=== PATIENT | male | born 1950 | race Caucasian/White ===

== ENCOUNTER 2016-06-17 14:04 | Emergency (ER) | payer MEDICARE, MEDICAID ==
[~2016-06-17] VITALS: Ht 193 cm; Wt 87.7 kg
[~2016-06-17 14:04] MED LIST: 00186-0372-20 IH; AMITRIPTYLINE H50 M1 PO; ASPIRIN 32325 MG/TAB PO; ASPIRIN E.C. 8181 MG PO; ATIVAN 0.50.5 MG/TAB; ATIVAN 1MG T1 MG/TAB PO; BACTRIM DS 8001 TAB PO; BUSPAR DIVIDOSE15 MG PO; COLACE 100100 MG/CAP PO; COMBIRESP IH; COMBIVENT INH14.7 GM IH; COREG12.5 MG PO; COZAAR 50MG50 MG/TAB PO; CRESTOR5 MG PO; CYMBALTA 30MG30 MG PO; DILAUDID 4MG TAB4 MG PO; FLEXERIL 1010 MG/TAB PO; FLONASEALLERGY NS; GAS-X80 MG PO; IMDUR 60MG60 MG/TAB PO; IPRATROPIUM BROM3 M1 IH; KLONOPIN 0.5MG0.5 MG PO; KLONOPIN 1MG1 MG PO; LASIX 20MG TABL20 MG PO; LIDODERM PATCH TP; LIPITOR 40MG TA40 MG PO; LIPITOR20 MG PO; MAXALT5 MG PO; METROGEL GEL45 GM TP; MOBIC 7.5MG7.5 MG PO; MOBIC15 MG PO; MUCINEX 60600 MG/TA1 PO; NEURONTIN100 MG/CAP PO; NEURONTIN300 MG/CAP PO; NITRO-DUR0.4 MG/PAT TD; NITROSTAT0.4 MG/TAB SL; NORCO 325 MG-101 TAB PO; NORCO 325 MG-51 TAB PO; NYSTATIN OR100 MU/ML PO; PERCOCET 325 MG1 TA2 PO; PLAVIX 75MG TAB75 MG PO; POTASSIUM IODID PO; PRILOSEC 20MG20 MG PO; PROSCAR 5MG5 MG PO; PULMICORT0.25 MG/2 IH; RT SPIRIVA18 MCG IH; SINGULAIR 110 MG/TAB PO; SYNTHROID 0.0.025 MG PO; THEO-24400 MG PO; THEO-DUR 2200 MG/TAB PO; VITAMIN D 50,1.25 MG PO; XOPENEX HF0.045 MG/A IH; XYAL5 MG PO; XYZAL5 MG PO; ZANTAC 150MG T150 MG PO; ZESTRIL 10MG10 MG PO; ZOSTRIX TP; [UNRECOGNIZED DRUG - OTHER] OU
[2016-06-17 14:46] LABS: BASO # 0.1 (0.0-0.2); BASO % 1.1 % (0.0-2.0); EOS # 0.4 (0.0-0.7); EOS % 4.1 % (0-4.0); GRAN # 4.5 (1.4-6.5); GRAN % 52.6 % (42.2-75.2); HEMATOCRIT 40.5 % (42.0-52.0); HEMOGLOBIN 13.3 g/dl (13.5-18.0); LYMPH # 2.9 (1.2-3.4); LYMPH % 34.3 % (20.0-51.0); MEAN CELL VOLUME 87 fl (80.0-100.0); MEAN CORPUSCULAR HEMOGLOBIN 29 pg (27.0-31.0); MEAN CORPUSCULAR HGB CONC 33 g/dl (33.0-37.0); MEAN PLATELET VOLUME 9.4 fl (7.4-10.4); MONO # 0.6 (0.1-0.6); MONO % 7.5 % (1.7-9.3); PLATELET COUNT 280 K/mm3 (130-400); RED BLOOD COUNT 4.65 M/mm3 (4.20-5.60); REDCELL DISTRIBUTION WIDTH-CV 15.1 % (11.5-14.5); WHITE BLOOD COUNT 8.5 K/mm3 (4.8-10.8)
[2016-06-17 14:51] LABS: ADJUSTED CALCIUM 9.8 mg/dL (8.4-10.2); ALANINE AMINOTRANSFERASE 22 U/L (21-72); ALBUMIN 3.9 gm/dL (3.5-5.0); ALKALINE PHOSPHATASE 90 U/L (50-136); ANION GAP 10 mmol/L (7-16); BILIRUBIN,TOTAL 0.5 mg/dL (0.0-1.0); BLOOD UREA NITROGEN 9 mg/dL (9-20); CALCIUM 9.7 mg/dL (8.4-10.2); CARBON DIOXIDE 21 mmol/L (22-30); CHLORIDE 105 mmol/L (98-107); GLUCOSE 98 mg/dL (74-106); POTASSIUM 4.4 mmol/L (3.4-5.0); SODIUM 136 mmol/L (137-145); TOTAL PROTEIN 6.8 gm/dL (6.4-8.2)
[2016-06-17 14:59] LABS: B-TYPE NATRIURETIC PEPTIDE 35 pg/mL (0-125)
[2016-06-17] MEDS ORDERED: PREDNISONE20 MG PO (15:02)
[2016-06-17 15:04] LABS: TROPONIN-I < 0.012 ng/mL (0.000-0.034)
[2016-06-17 15:52] VITALS: BP 123/87; PULSE 77
== END 2016-06-17 15:57 | disposition home or self-care (01) ==
LOC: COL.ER 14:04
PROVIDERS: Emergency Medicine
DX: R07.9 Chest pain, unspecified (principal); R06.00 Dyspnea, unspecified; J44.9 Chronic obstructive pulmonary disease, unspecified; R42 Dizziness and giddiness; J47.9 Bronchiectasis, uncomplicated; Z45.2 Encounter for adjustment and management of vascular access device
CPT/HCPCS: J7030; J7512

== ENCOUNTER 2016-06-24 10:31 | Outpatient (CLI) | payer MEDICARE, MEDICAID ==
[2016-06-24] VITALS (8 sets, daily range): BP systolic 118–135; BP diastolic 66–99; PULSE 72–85; TEMP 97.4–98.4
[~2016-06-24] VITALS: Ht 193 cm; Wt 87.0 kg
[~2016-06-24 10:31] MED LIST changes: +PREDNISONE20 MG PO
[2016-06-24 11:07] LABS: ADD PATHOLOGY DIFF REVIEW NO
[2016-06-24 11:12] LABS: HEMATOCRIT 38.3 % (42.0-52.0); HEMOGLOBIN 12.5 g/dl (13.5-18.0); MEAN CELL VOLUME 87 fl (80.0-100.0); MEAN CORPUSCULAR HEMOGLOBIN 29 pg (27.0-31.0); MEAN CORPUSCULAR HGB CONC 33 g/dl (33.0-37.0); MEAN PLATELET VOLUME 8.8 fl (7.4-10.4); PLATELET COUNT 301 K/mm3 (130-400); RED BLOOD COUNT 4.38 M/mm3 (4.20-5.60); REDCELL DISTRIBUTION WIDTH-CV 14.8 % (11.5-14.5); WHITE BLOOD COUNT 9.4 K/mm3 (4.8-10.8)
[2016-06-24 11:21] LABS: ADJUSTED CALCIUM 9.5 mg/dL (8.4-10.2); ALBUMIN 3.7 gm/dL (3.5-5.0); BILIRUBIN,TOTAL 0.3 mg/dL (0.0-1.0); CALCIUM 9.3 mg/dL (8.4-10.2); CREATININE, serum 1.07 mg/dL (0.66-1.25); POTASSIUM 4.7 mmol/L (3.4-5.0); TOTAL PROTEIN 6.3 gm/dL (6.4-8.2)
[2016-06-24 11:49] LABS: BAND 5 % (0-10); NEUTROPHILS 73 % (42.0-75.2); TOTAL CELLS COUNTED 100
== END 2016-06-24 15:34 | disposition home or self-care (01) ==
LOC: EUO 10:31
PROVIDERS: Internal Medicine
DX: D80.1 Nonfamilial hypogammaglobulinemia (principal); Z45.2 Encounter for adjustment and management of vascular access device
CPT/HCPCS: J1100; J1200; J1459; J1644

== ENCOUNTER 2016-07-21 09:12 | Emergency (ER) | payer MEDICARE, MEDICAID ==
[~2016-07-21] VITALS: Ht 193 cm; Wt 90.0 kg
[2016-07-21 09:17] VITALS: BP 131/101; PULSE 70; TEMP 97.6
[2016-07-22] MEDS ORDERED: TYLENOL W/COD1 UDTAB PO (11:41)
[2016-07-22] MEDS ORDERED: FLEXERIL 1010 MG/TAB PO (11:41)
== END 2016-07-21 10:40 | disposition home or self-care (01) ==
LOC: COL.ER 09:12
DX: S09.21XA Traumatic rupture of right ear drum, initial encounter (principal); W22.8XXA Striking against or struck by other objects, initial encounter; Y93.E8 Activity, other personal hygiene; I10 Essential (primary) hypertension; F17.210 Nicotine dependence, cigarettes, uncomplicated

== ENCOUNTER 2016-07-22 10:41 | Outpatient (CLI) | payer MEDICARE, MEDICAID ==
[~2016-07-22] VITALS: Ht 193 cm; Wt 90.0 kg
[2016-07-22] VITALS (9 sets, daily range): BP systolic 116–135; BP diastolic 60–83; PULSE 66–78; TEMP 97.4–98.5
[2016-07-22] MEDS ORDERED: FLEXERIL 1010 MG/TAB PO (11:41)
[2016-07-22] MEDS ORDERED: TYLENOL W/COD1 UDTAB PO (11:41)
== END 2016-07-22 14:35 | disposition home or self-care (01) ==
LOC: EUO 10:41
DX: D80.1 Nonfamilial hypogammaglobulinemia (principal); Z45.2 Encounter for adjustment and management of vascular access device
CPT/HCPCS: J1100; J1200; J1459; J1644

== ENCOUNTER 2016-08-19 09:31 | Outpatient (CLI) | payer MEDICARE, MEDICAID ==
[~2016-08-19] VITALS: Ht 193 cm; Wt 88.0 kg
[2016-08-19] VITALS (8 sets, daily range): BP systolic 99–120; BP diastolic 60–89; PULSE 68–89; TEMP 96–97.6
[~2016-08-19 09:31] MED LIST changes: +TYLENOL W/COD1 UDTAB PO
[2016-08-19 10:36] LABS: ADD PATHOLOGY DIFF REVIEW NO
[2016-08-19 10:46] LABS: HEMATOCRIT 39.9 % (42.0-52.0); HEMOGLOBIN 12.9 g/dl (13.5-18.0); MEAN CELL VOLUME 87 fl (80.0-100.0); MEAN CORPUSCULAR HEMOGLOBIN 28 pg (27.0-31.0); MEAN CORPUSCULAR HGB CONC 32 g/dl (33.0-37.0); MEAN PLATELET VOLUME 9.7 fl (7.4-10.4); PLATELET COUNT 273 K/mm3 (130-400); RED BLOOD COUNT 4.61 M/mm3 (4.20-5.60); REDCELL DISTRIBUTION WIDTH-CV 15.9 % (11.5-14.5); WHITE BLOOD COUNT 8.9 K/mm3 (4.8-10.8)
[2016-08-19 11:07] LABS: ADJUSTED CALCIUM 9.3 mg/dL (8.4-10.2); ALBUMIN 3.5 gm/dL (3.5-5.0); BILIRUBIN,TOTAL 0.7 mg/dL (0.0-1.0); CALCIUM 8.9 mg/dL (8.4-10.2); CREATININE, serum 1.04 mg/dL (0.66-1.25); POTASSIUM 4.4 mmol/L (3.4-5.0); TOTAL PROTEIN 6.1 gm/dL (6.4-8.2)
[2016-08-19 11:22] LABS: BAND 2 % (0-10); BASOPHIL 1 % (0-2); EOSINOPHIL 4 % (0-4); NEUTROPHILS 42 % (42.0-75.2); TOTAL CELLS COUNTED 100
== END 2016-08-19 16:51 | disposition home or self-care (01) ==
LOC: EUO 09:31
PROVIDERS: Internal Medicine
DX: D80.1 Nonfamilial hypogammaglobulinemia (principal); Z45.2 Encounter for adjustment and management of vascular access device
CPT/HCPCS: J1100; J1200; J1459; J1644

== ENCOUNTER 2016-09-16 11:07 | Outpatient (CLI) | payer MEDICARE, MEDICAID ==
[~2016-09-16] VITALS: Ht 193 cm; Wt 87.2 kg
[2016-09-16] VITALS (8 sets, daily range): BP systolic 122–148; BP diastolic 81–93; PULSE 71–84; TEMP 97.1
[2016-09-16 11:45] LABS: ADD PATHOLOGY DIFF REVIEW NO
[2016-09-16 11:52] LABS: HEMATOCRIT 37.9 % (42.0-52.0); HEMOGLOBIN 12.3 g/dl (13.5-18.0); MEAN CELL VOLUME 85 fl (80.0-100.0); MEAN CORPUSCULAR HEMOGLOBIN 28 pg (27.0-31.0); MEAN CORPUSCULAR HGB CONC 33 g/dl (33.0-37.0); MEAN PLATELET VOLUME 9.4 fl (7.4-10.4); PLATELET COUNT 317 K/mm3 (130-400); RED BLOOD COUNT 4.44 M/mm3 (4.20-5.60); REDCELL DISTRIBUTION WIDTH-CV 16.6 % (11.5-14.5); WHITE BLOOD COUNT 14.5 K/mm3 (4.8-10.8)
[2016-09-16 12:05] LABS: ADJUSTED CALCIUM 9.4 mg/dL (8.4-10.2); ALBUMIN 3.8 gm/dL (3.5-5.0); BILIRUBIN,TOTAL 0.5 mg/dL (0.0-1.0); CALCIUM 9.2 mg/dL (8.4-10.2); CREATININE, serum 1.01 mg/dL (0.66-1.25); POTASSIUM 4.6 mmol/L (3.4-5.0); TOTAL PROTEIN 6.2 gm/dL (6.4-8.2)
[2016-09-16 15:21] LABS: BAND 3 % (0-10); EOSINOPHIL 1 % (0-4); MYELOCYTE 1 % (0-0); NEUTROPHILS 68 % (42.0-75.2); TOTAL CELLS COUNTED 100
[2016-09-16 15:26] LABS: PLATELET ESTIMATE NORMAL (NORMAL)
[2016-09-16 15:40] LABS: ANISOCYTOSIS 1+
== END 2016-09-16 15:29 | disposition home or self-care (01) ==
LOC: EUO 11:07
PROVIDERS: Internal Medicine
DX: D80.1 Nonfamilial hypogammaglobulinemia (principal)
CPT/HCPCS: J1100; J1200; J1459

== ENCOUNTER 2016-10-21 11:55 | Outpatient (CLI) | payer MEDICARE, MEDICAID ==
[2016-10-21] VITALS (9 sets, daily range): BP systolic 95–122; BP diastolic 63–75; PULSE 72–87; TEMP 97.1–97.7
[~2016-10-21] VITALS: Ht 193 cm; Wt 87.2 kg
[2016-10-21 13:18] LABS: ADD PATHOLOGY DIFF REVIEW NO
[2016-10-21 13:21] LABS: HEMATOCRIT 39.6 % (42.0-52.0); HEMOGLOBIN 12.7 g/dl (13.5-18.0); MEAN CELL VOLUME 85 fl (80.0-100.0); MEAN CORPUSCULAR HEMOGLOBIN 27 pg (27.0-31.0); MEAN CORPUSCULAR HGB CONC 32 g/dl (33.0-37.0); MEAN PLATELET VOLUME 9.2 fl (7.4-10.4); PLATELET COUNT 250 K/mm3 (130-400); RED BLOOD COUNT 4.64 M/mm3 (4.20-5.60); REDCELL DISTRIBUTION WIDTH-CV 16.6 % (11.5-14.5); WHITE BLOOD COUNT 6.8 K/mm3 (4.8-10.8)
[2016-10-21 13:36] LABS: BAND 3 % (0-10); EOSINOPHIL 4 % (0-4); NEUTROPHILS 44 % (42.0-75.2); TOTAL CELLS COUNTED 100
[2016-10-21 13:38] LABS: PLATELET ESTIMATE NORMAL (NORMAL)
[2016-10-21 13:56] LABS: ADJUSTED CALCIUM 9.3 mg/dL (8.4-10.2); ALBUMIN 3.3 gm/dL (3.5-5.0); BILIRUBIN,TOTAL 0.7 mg/dL (0.0-1.0); CALCIUM 8.7 mg/dL (8.4-10.2); CREATININE, serum 1.14 mg/dL (0.66-1.25); POTASSIUM 4.4 mmol/L (3.4-5.0); TOTAL PROTEIN 5.7 gm/dL (6.4-8.2)
== END 2016-10-21 16:42 | disposition home or self-care (01) ==
LOC: EUO 11:55
PROVIDERS: Internal Medicine
DX: D80.1 Nonfamilial hypogammaglobulinemia (principal)
CPT/HCPCS: J1100; J1200; J1459

== ENCOUNTER 2016-11-18 10:40 | Outpatient (CLI) | payer MEDICARE, MEDICAID ==
[~2016-11-18] VITALS: Ht 193 cm; Wt 81.3 kg
[2016-11-18] VITALS (8 sets, daily range): BP systolic 118–145; BP diastolic 62–95; PULSE 53–84; TEMP 97.3–98
[2016-11-18 11:06] LABS: ADD PATHOLOGY DIFF REVIEW NO
[2016-11-18 11:11] LABS: HEMATOCRIT 39.8 % (42.0-52.0); HEMOGLOBIN 13.2 g/dl (13.5-18.0); MEAN CELL VOLUME 83 fl (80.0-100.0); MEAN CORPUSCULAR HEMOGLOBIN 28 pg (27.0-31.0); MEAN CORPUSCULAR HGB CONC 33 g/dl (33.0-37.0); MEAN PLATELET VOLUME 9.5 fl (7.4-10.4); PLATELET COUNT 269 K/mm3 (130-400); RED BLOOD COUNT 4.78 M/mm3 (4.20-5.60); REDCELL DISTRIBUTION WIDTH-CV 15.9 % (11.5-14.5); WHITE BLOOD COUNT 7.9 K/mm3 (4.8-10.8)
[2016-11-18 11:25] LABS: ADJUSTED CALCIUM 9.2 mg/dL (8.4-10.2); ALBUMIN 3.6 gm/dL (3.5-5.0); BILIRUBIN,TOTAL 0.6 mg/dL (0.0-1.0); CALCIUM 8.9 mg/dL (8.4-10.2); CREATININE, serum 0.85 mg/dL (0.66-1.25); POTASSIUM 4.3 mmol/L (3.4-5.0); TOTAL PROTEIN 6.1 gm/dL (6.4-8.2)
[2016-11-18 11:55] LABS: BAND 5 % (0-10); EOSINOPHIL 7 % (0-4); NEUTROPHILS 42 % (42.0-75.2); PLATELET ESTIMATE NORMAL (NORMAL); TOTAL CELLS COUNTED 100
== END 2016-11-18 15:55 | disposition home or self-care (01) ==
LOC: EUO 10:40
PROVIDERS: Internal Medicine
DX: D80.1 Nonfamilial hypogammaglobulinemia (principal)
CPT/HCPCS: J1100; J1459; J1644

== ENCOUNTER 2016-12-16 10:48 | Outpatient (CLI) | payer MEDICARE, MEDICAID ==
[~2016-12-16] VITALS: Ht 193 cm; Wt 74.5 kg
[2016-12-16] VITALS (8 sets, daily range): BP systolic 101–128; BP diastolic 46–80; PULSE 62–99; TEMP 97.1–97.7
[2016-12-16 12:43] LABS: ADD PATHOLOGY DIFF REVIEW NO
[2016-12-16 12:50] LABS: HEMATOCRIT 40.2 % (42.0-52.0); HEMOGLOBIN 13.8 g/dl (13.5-18.0); MEAN CELL VOLUME 83 fl (80.0-100.0); MEAN CORPUSCULAR HEMOGLOBIN 29 pg (27.0-31.0); MEAN CORPUSCULAR HGB CONC 34 g/dl (33.0-37.0); MEAN PLATELET VOLUME 9.8 fl (7.4-10.4); PLATELET COUNT 281 K/mm3 (130-400); RED BLOOD COUNT 4.82 M/mm3 (4.20-5.60); REDCELL DISTRIBUTION WIDTH-CV 17.5 % (11.5-14.5); WHITE BLOOD COUNT 8.5 K/mm3 (4.8-10.8)
[2016-12-16 12:59] LABS: ADJUSTED CALCIUM 9.5 mg/dL (8.4-10.2); ALBUMIN 3.4 gm/dL (3.5-5.0); BILIRUBIN,TOTAL 0.8 mg/dL (0.0-1.0); CREATININE, serum 0.93 mg/dL (0.66-1.25)
[2016-12-16 13:26] LABS: ANISOCYTOSIS 1+; BAND 13 % (0-10); BASOPHIL 1 % (0-2); EOSINOPHIL 6 % (0-4); METAMYELOCYTE 1 % (0-0); MYELOCYTE 1 % (0-0); NEUTROPHILS 38 % (42.0-75.2); PLATELET ESTIMATE INCREASED (NORMAL); TOTAL CELLS COUNTED 100
== END 2016-12-16 16:32 | disposition home or self-care (01) ==
LOC: EUO 10:48
PROVIDERS: Internal Medicine
DX: D80.1 Nonfamilial hypogammaglobulinemia (principal); T82.598A Other mechanical complication of other cardiac and vascular devices and implants, initial encounter; Z79.899 Other long term (current) drug therapy
CPT/HCPCS: J1100; J1200; J1459; J1644; J2997; Q9967

== ENCOUNTER 2017-01-13 06:56 | Outpatient (CLI) | payer MEDICARE, MEDICAID ==
[~2017-01-13] VITALS: Ht 193 cm; Wt 73.6 kg
[2017-01-13] VITALS (9 sets, daily range): BP systolic 94–141; BP diastolic 58–89; PULSE 51–60; TEMP 97.5–98.4
[2017-01-13 07:58] LABS: ADD PATHOLOGY DIFF REVIEW NO
[2017-01-13 08:05] LABS: HEMATOCRIT 38.9 % (42.0-52.0); MEAN CELL VOLUME 86 fl (80.0-100.0); MEAN CORPUSCULAR HEMOGLOBIN 29 pg (27.0-31.0); MEAN CORPUSCULAR HGB CONC 33 g/dl (33.0-37.0); MEAN PLATELET VOLUME 9.6 fl (7.4-10.4); PLATELET COUNT 260 K/mm3 (130-400); RED BLOOD COUNT 4.52 M/mm3 (4.20-5.60); WHITE BLOOD COUNT 6.7 K/mm3 (4.8-10.8)
[2017-01-13 08:15] LABS: ADJUSTED CALCIUM 9.2 mg/dL (8.4-10.2); BILIRUBIN,TOTAL 0.6 mg/dL (0.0-1.0); CALCIUM 8.4 mg/dL (8.4-10.2); CREATININE, serum 1.02 mg/dL (0.66-1.25); POTASSIUM 4.2 mmol/L (3.4-5.0); TOTAL PROTEIN 5.4 gm/dL (6.4-8.2)
[2017-01-13 08:38] LABS: ANISOCYTOSIS 2+; BAND 6 % (0-10); EOSINOPHIL 5 % (0-4); METAMYELOCYTE 2 % (0-0); MYELOCYTE 4 % (0-0); NEUTROPHILS 41 % (42.0-75.2); PLATELET ESTIMATE NORMAL (NORMAL); TOTAL CELLS COUNTED 100
== END 2017-01-13 11:26 | disposition home or self-care (01) ==
LOC: EUO 06:56
PROVIDERS: Internal Medicine
DX: D80.1 Nonfamilial hypogammaglobulinemia (principal)
CPT/HCPCS: J1100; J1200; J1459

== ENCOUNTER 2017-02-12 12:41 | Outpatient (CLI) | payer MEDICARE, MEDICAID ==
[~2017-02-12] VITALS: Ht 193 cm; Wt 71.4 kg
[2017-02-12] VITALS (9 sets, daily range): BP systolic 88–137; BP diastolic 57–87; PULSE 65–76; TEMP 98
[2017-02-12 14:53] LABS: ADD PATHOLOGY DIFF REVIEW NO
[2017-02-12 15:12] LABS: ADJUSTED CALCIUM 9.4 mg/dL (8.4-10.2); ALBUMIN 2.7 gm/dL (3.5-5.0); BILIRUBIN,TOTAL 0.3 mg/dL (0.0-1.0); CALCIUM 8.4 mg/dL (8.4-10.2); CREATININE, serum 0.95 mg/dL (0.66-1.25); POTASSIUM 3.7 mmol/L (3.4-5.0); TOTAL PROTEIN 5.1 gm/dL (6.4-8.2)
[2017-02-12 15:23] LABS: MEAN CELL VOLUME 88 fl (80.0-100.0); MEAN CORPUSCULAR HGB CONC 34 g/dl (33.0-37.0); MEAN PLATELET VOLUME 9.9 fl (7.4-10.4); PLATELET COUNT 207 K/mm3 (130-400); RED BLOOD COUNT 4.01 M/mm3 (4.20-5.60); REDCELL DISTRIBUTION WIDTH-CV 17.8 % (11.5-14.5); WHITE BLOOD COUNT 6.1 K/mm3 (4.8-10.8)
[2017-02-12 15:26] LABS: HEMATOCRIT 35.1 % (42.0-52.0); HEMOGLOBIN 11.8 g/dl (13.5-18.0); MEAN CORPUSCULAR HEMOGLOBIN 29 pg (27.0-31.0)
[2017-02-12 15:58] LABS: ANISOCYTOSIS 1+; EOSINOPHIL 4 % (0-4); NEUTROPHILS 54 % (42.0-75.2); PLATELET ESTIMATE NORMAL (NORMAL); TOTAL CELLS COUNTED 100
== END 2017-02-12 15:59 | disposition home or self-care (01) ==
LOC: EUO 12:41
PROVIDERS: Internal Medicine
DX: D80.1 Nonfamilial hypogammaglobulinemia (principal); Z79.899 Other long term (current) drug therapy
CPT/HCPCS: J1100; J1200; J1459

== ENCOUNTER 2017-03-10 12:17 | Outpatient (CLI) | payer MEDICARE ==
[2017-03-10] VITALS (8 sets, daily range): BP systolic 82–117; BP diastolic 46–73; PULSE 70–90; TEMP 97.5–97.9
[~2017-03-10] VITALS: Ht 193 cm; Wt 70.5 kg
[2017-03-10 12:38] LABS: ADD PATHOLOGY DIFF REVIEW NO
[2017-03-10 12:43] LABS: HEMATOCRIT 37.2 % (42.0-52.0); HEMOGLOBIN 12.6 g/dl (13.5-18.0); MEAN CELL VOLUME 90 fl (80.0-100.0); MEAN CORPUSCULAR HEMOGLOBIN 31 pg (27.0-31.0); MEAN CORPUSCULAR HGB CONC 34 g/dl (33.0-37.0); PLATELET COUNT 280 K/mm3 (130-400); RED BLOOD COUNT 4.12 M/mm3 (4.20-5.60); REDCELL DISTRIBUTION WIDTH-CV 15.4 % (11.5-14.5); WHITE BLOOD COUNT 7.2 K/mm3 (4.8-10.8)
[2017-03-10] MEDS ORDERED: LEXAPRO 10MG10 MG PO (12:44)
[2017-03-10] MEDS ORDERED: PLAVIX 75MG TAB75 MG PO (12:45)
[2017-03-10] MEDS ORDERED: FLOMAX 0.40.4 MG/CAP PO (12:48)
[2017-03-10 12:55] LABS: ADJUSTED CALCIUM 9.4 mg/dL (8.4-10.2); ALBUMIN 3.8 gm/dL (3.5-5.0); BILIRUBIN,TOTAL 0.3 mg/dL (0.0-1.0); CALCIUM 9.2 mg/dL (8.4-10.2); CREATININE, serum 0.98 mg/dL (0.66-1.25); TOTAL PROTEIN 6.5 gm/dL (6.4-8.2)
[2017-03-10 13:27] LABS: ANISOCYTOSIS 1+; BAND 3 % (0-10); BASOPHIL 1 % (0-2); EOSINOPHIL 6 % (0-4); METAMYELOCYTE 2 % (0-0); NEUTROPHILS 57 % (42.0-75.2); OVALOCYTES 1+; PLATELET ESTIMATE NORMAL (NORMAL)
[2017-03-10 13:29] LABS: MYELOCYTE 1 % (0-0); TOTAL CELLS COUNTED 100
== END 2017-03-10 16:32 | disposition home or self-care (01) ==
LOC: EUO 12:17
PROVIDERS: Internal Medicine
DX: D80.1 Nonfamilial hypogammaglobulinemia (principal); Z79.899 Other long term (current) drug therapy
CPT/HCPCS: J1100; J1200; J1459; J1644

== ENCOUNTER → 2017-04-28 | Outpatient (CLI) | payer MEDICARE, MEDICAID ==
[~2017-04-28] MED LIST changes: +FLOMAX 0.40.4 MG/CAP PO; +LEXAPRO 10MG10 MG PO
== END ==
LOC: COL.RAD 12:11
DX: R10.31 Right lower quadrant pain (principal)
CPT/HCPCS: J7050; Q9967

== ENCOUNTER → 2017-06-02 | Outpatient (CLI) | payer MEDICARE, MEDICAID ==
[~2017-06-02] VITALS: Ht 193 cm; Wt 84.0 kg
[2017-06-02] VITALS (8 sets, daily range): BP systolic 105–137; BP diastolic 54–74; PULSE 66–82; TEMP 97.7
[2017-06-02 12:34] LABS: HEMATOCRIT 38.6 % (42.0-52.0); HEMOGLOBIN 12.7 g/dl (13.5-18.0); MEAN CELL VOLUME 86 fl (80.0-100.0); MEAN CORPUSCULAR HEMOGLOBIN 28 pg (27.0-31.0); MEAN CORPUSCULAR HGB CONC 33 g/dl (33.0-37.0); MEAN PLATELET VOLUME 8.8 fl (7.4-10.4); PLATELET COUNT 286 K/mm3 (130-400); RED BLOOD COUNT 4.49 M/mm3 (4.20-5.60); REDCELL DISTRIBUTION WIDTH-CV 14.3 % (11.5-14.5)
[2017-06-02 12:36] LABS: ALBUMIN 4.4 gm/dL (3.5-5.0); BILIRUBIN,TOTAL 0.5 mg/dL (0.0-1.0); CALCIUM 9.8 mg/dL (8.4-10.2); CREATININE, serum 0.96 mg/dL (0.66-1.25); POTASSIUM 4.1 mmol/L (3.4-5.0); TOTAL PROTEIN 6.9 gm/dL (6.4-8.2)
[2017-06-02 12:45] LABS: BAND 3 % (0-10); EOSINOPHIL 2 % (0-4); LYMPHOCYTE 40 % (20.0-51.0); METAMYELOCYTE 2 % (0-0); NEUTROPHILS 51 % (42.0-75.2); PLATELET ESTIMATE NORMAL (NORMAL)
== END ==
LOC: EUO 11:51
PROVIDERS: Internal Medicine
DX: D80.1 Nonfamilial hypogammaglobulinemia (principal)
CPT/HCPCS: J1100; J1200; J1459; J1569

== ENCOUNTER 2017-07-29 10:58 | Outpatient (CLI) | payer MEDICARE, MEDICAID ==
[2017-07-29] VITALS (8 sets, daily range): BP systolic 110–131; BP diastolic 58–70; PULSE 67–80; TEMP 97.8–98.1
[~2017-07-29] VITALS: Ht 193 cm; Wt 87.3 kg
[2017-07-29 11:54] LABS: HEMATOCRIT 37.5 % (42.0-52.0); HEMOGLOBIN 12.5 g/dl (13.5-18.0); MEAN CELL VOLUME 86 fl (80.0-100.0); MEAN CORPUSCULAR HEMOGLOBIN 29 pg (27.0-31.0); MEAN CORPUSCULAR HGB CONC 33 g/dl (33.0-37.0); MEAN PLATELET VOLUME 8.8 fl (7.4-10.4); PLATELET COUNT 259 K/mm3 (130-400); RED BLOOD COUNT 4.38 M/mm3 (4.20-5.60); REDCELL DISTRIBUTION WIDTH-CV 15.8 % (11.5-14.5)
[2017-07-29 12:04] LABS: ALBUMIN 4.4 gm/dL (3.5-5.0); BILIRUBIN,TOTAL 0.4 mg/dL (0.0-1.0); CALCIUM 9.2 mg/dL (8.4-10.2); CREATININE, serum 1.12 mg/dL (0.66-1.25); POTASSIUM 4.1 mmol/L (3.4-5.0); TOTAL PROTEIN 6.9 gm/dL (6.4-8.2)
[2017-07-29 12:14] LABS: BAND 2 % (0-10); EOSINOPHIL 6 % (0-4); LYMPHOCYTE 19 % (20.0-51.0); METAMYELOCYTE 1 % (0-0); NEUTROPHILS 58 % (42.0-75.2); PLATELET ESTIMATE NORMAL (NORMAL)
== END 2017-07-29 16:00 | disposition home or self-care (01) ==
LOC: EUO 10:58
PROVIDERS: Internal Medicine
DX: D80.1 Nonfamilial hypogammaglobulinemia (principal); Z79.899 Other long term (current) drug therapy
CPT/HCPCS: J1100; J1200; J1569; J1644

== ENCOUNTER 2017-08-27 13:54 | Outpatient (CLI) | payer MEDICARE ==
[~2017-08-27] VITALS: Ht 193 cm; Wt 89.0 kg
[2017-08-27] VITALS (7 sets, daily range): BP systolic 111–119; BP diastolic 59–74; PULSE 67–77; TEMP 97.4–98.5
[2017-08-27 14:41] LABS: HEMATOCRIT 38.2 % (42.0-52.0); HEMOGLOBIN 12.7 g/dl (13.5-18.0); MEAN CELL VOLUME 84 fl (80.0-100.0); MEAN CORPUSCULAR HEMOGLOBIN 28 pg (27.0-31.0); MEAN CORPUSCULAR HGB CONC 33 g/dl (33.0-37.0); MEAN PLATELET VOLUME 8.3 fl (7.4-10.4); PLATELET COUNT 303 K/mm3 (130-400); RED BLOOD COUNT 4.53 M/mm3 (4.20-5.60); REDCELL DISTRIBUTION WIDTH-CV 15.5 % (11.5-14.5)
[2017-08-27 14:56] LABS: ANISOCYTOSIS 1+; EOSINOPHIL 11 % (0-4); LYMPHOCYTE 27 % (20.0-51.0); NEUTROPHILS 51 % (42.0-75.2); PLATELET ESTIMATE NORMAL (NORMAL)
[2017-08-27 15:19] LABS: ALBUMIN 3.9 gm/dL (3.5-5.0); BILIRUBIN,TOTAL 0.2 mg/dL (0.0-1.0); CREATININE, serum 1.19 mg/dL (0.66-1.25); POTASSIUM 4.1 mmol/L (3.4-5.0); TOTAL PROTEIN 6.8 gm/dL (6.4-8.2)
== END 2017-08-27 18:03 | disposition home or self-care (01) ==
LOC: EUO 13:54
PROVIDERS: Internal Medicine
DX: D80.1 Nonfamilial hypogammaglobulinemia (principal)
CPT/HCPCS: J1100; J1200; J1569; J1644

== ENCOUNTER 2017-09-20 09:40 | Inpatient (IN) | payer MEDICARE, MEDICAID ==
[2017-09-28 08:58] VITALS: BP 123/72; PULSE 66; TEMP 97.5
[2017-09-28] MEDS ORDERED: ASPIRIN 81M81 MG/TA2 PO (09:22)
[2017-09-28] MEDS ORDERED: ALBUTEROL0.83 MG/ML IH (09:22)
[2017-09-28] MEDS ORDERED: WELLBUTRIN SR150 M1 PO (09:22)
[2017-09-28] MEDS ORDERED: QUESTRAN4 GM/9 GM PO (09:23)
[2017-09-28] MEDS ORDERED: RESTASIS 60VL OP (09:24)
[2017-09-28] MEDS ORDERED: BENTYL 10MG10 MG/CAP PO (09:24)
[2017-09-28] MEDS ORDERED: MUCINEX1200 MG PO (09:25)
[2017-09-28] MEDS ORDERED: MILK OF MA400 MG/52 PO (09:25)
[2017-09-28] MEDS ORDERED: NITRO-DUR0.4 MG/PAT TD (09:26)
[2017-09-28] MEDS ORDERED: PROTONIX20 MG PO (09:27)
[2017-09-28] MEDS ORDERED: POTASSIUM IODID PO (09:27)
[2017-09-28] MEDS ORDERED: VENTOLIN0.09 MG IH (09:28)
[2017-09-28] MEDS ORDERED: SPIRIVA RE2.5 MCG/Ac IH (09:28)
[2017-09-28] MEDS ORDERED: FLORAJEN BIFIDO1 CAP PO (09:28)
[2017-09-28 09:29] LABS: BASO % 0.2 % (0.0-2.0); EOS # 0.3 (0.0-0.7); EOS % 2.6 % (0-4.0); GRAN # 7.2 (1.4-6.5); GRAN % 58.6 % (42.2-75.2); HEMATOCRIT 40.1 % (42.0-52.0); HEMOGLOBIN 13.2 g/dl (13.5-18.0); LYMPH # 3.8 (1.2-3.4); LYMPH % 30.4 % (20.0-51.0); MEAN CELL VOLUME 84 fl (80.0-100.0); MEAN CORPUSCULAR HEMOGLOBIN 28 pg (27.0-31.0); MEAN CORPUSCULAR HGB CONC 33 g/dl (33.0-37.0); MONO # 0.9 (0.1-0.6); MONO % 7.5 % (1.7-9.3); PLATELET COUNT 345 K/mm3 (130-400); RED BLOOD COUNT 4.75 M/mm3 (4.20-5.60); REDCELL DISTRIBUTION WIDTH-CV 15.5 % (11.5-14.5)
[2017-09-28] MEDS ORDERED: BENEFIBER PO (09:29)
[2017-09-28] MEDS ORDERED: COUMADIN 5MG5 MG/TAB PO (09:32)
[2017-09-28 09:35] LABS: INR 3.4 (0.8-3.0); PROTHROMBIN TIME 40.8 SECONDS (9.7-12.8)
[2017-09-28 09:39] LABS: ALBUMIN 3.9 gm/dL (3.5-5.0); BILIRUBIN,TOTAL 0.2 mg/dL (0.0-1.0); CALCIUM 9.2 mg/dL (8.4-10.2); CREATININE, serum 0.98 mg/dL (0.66-1.25); MAGNESIUM 2.2 mg/dL (1.6-2.3); POTASSIUM 3.5 mmol/L (3.4-5.0); TOTAL PROTEIN 7.3 gm/dL (6.4-8.2)
[2017-09-28 12:16] VITALS: BP 138/86; PULSE 61; TEMP 97.5
[2017-09-28 16:51] VITALS: BP 148/71; PULSE 64; TEMP 97.8
[2017-09-28 20:01] VITALS: BP 118/70; PULSE 62; TEMP 98.6
[2017-09-28 23:31] VITALS: BP 129/75; PULSE 62; TEMP 98.5
[2017-09-29 04:10] VITALS: BP 102/53; PULSE 59; TEMP 97.7
[2017-09-29 06:55] LABS: BASO # 0.1 (0.0-0.2); BASO % 0.7 % (0.0-2.0); EOS # 0.4 (0.0-0.7); EOS % 4.5 % (0-4.0); GRAN # 4.6 (1.4-6.5); GRAN % 48.2 % (42.2-75.2); HEMATOCRIT 40.6 % (42.0-52.0); HEMOGLOBIN 13.3 g/dl (13.5-18.0); LYMPH # 3.5 (1.2-3.4); LYMPH % 36.9 % (20.0-51.0); MEAN CELL VOLUME 85 fl (80.0-100.0); MEAN CORPUSCULAR HEMOGLOBIN 28 pg (27.0-31.0); MEAN CORPUSCULAR HGB CONC 33 g/dl (33.0-37.0); MEAN PLATELET VOLUME 8.7 fl (7.4-10.4); MONO # 0.8 (0.1-0.6); MONO % 8.5 % (1.7-9.3); PLATELET COUNT 327 K/mm3 (130-400); RED BLOOD COUNT 4.77 M/mm3 (4.20-5.60); REDCELL DISTRIBUTION WIDTH-CV 15.5 % (11.5-14.5)
[2017-09-29 07:12] LABS: CALCIUM 8.9 mg/dL (8.4-10.2); CREATININE, serum 1.03 mg/dL (0.66-1.25); POTASSIUM 4.3 mmol/L (3.4-5.0)
[2017-09-29 07:15] LABS: INR 3.4 (0.8-3.0); PROTHROMBIN TIME 40.6 SECONDS (9.7-12.8)
[2017-09-29 08:25] VITALS: BP 111/75; PULSE 62; TEMP 97.5
[2017-09-29 12:40] VITALS: BP 112/68; PULSE 62; TEMP 98.2
[2017-09-29 16:19] VITALS: BP 117/68; PULSE 67; TEMP 98.4
[2017-09-29 20:17] VITALS: BP 109/59; PULSE 72; TEMP 97.8
[2017-09-30 00:22] VITALS: BP 83/57; PULSE 60; TEMP 97.9
[2017-09-30 03:50] VITALS: BP 104/70; PULSE 67; TEMP 97.3
[2017-09-30 06:43] LABS: HEMATOCRIT 40.2 % (42.0-52.0); MEAN CELL VOLUME 86 fl (80.0-100.0); MEAN CORPUSCULAR HEMOGLOBIN 28 pg (27.0-31.0); MEAN CORPUSCULAR HGB CONC 32 g/dl (33.0-37.0); MEAN PLATELET VOLUME 8.8 fl (7.4-10.4); PLATELET COUNT 317 K/mm3 (130-400); REDCELL DISTRIBUTION WIDTH-CV 15.4 % (11.5-14.5)
[2017-09-30 06:50] LABS: PROTHROMBIN TIME 36.1 SECONDS (9.7-12.8)
[2017-09-30 06:56] LABS: CALCIUM 8.8 mg/dL (8.4-10.2); CREATININE, serum 0.99 mg/dL (0.66-1.25); POTASSIUM 4.3 mmol/L (3.4-5.0)
[2017-09-30 08:11] VITALS: BP 123/75; PULSE 60; TEMP 98
[2017-09-30 08:29] LABS: EOSINOPHIL 2 % (0-4); LYMPHOCYTE 24 % (20.0-51.0); NEUTROPHILS 65 % (42.0-75.2); PLATELET ESTIMATE NORMAL (NORMAL)
[2017-09-30 08:30] LABS: ANISOCYTOSIS 1+; POLYCHROMASIA 1+
[2017-09-30] MEDS ORDERED: BETAPACE 80MG80 MG PO (10:52)
== END 2017-09-30 13:03 | disposition home or self-care (01) | DRG 309 ==
LOC: INPTSU 09-28 07:46 → MEDICAL 09-28 07:46
PROVIDERS: Internal Medicine Cardiovascular Disease
DX: I48.0 Paroxysmal atrial fibrillation (principal); D84.9 Immunodeficiency, unspecified; I42.0 Dilated cardiomyopathy; I25.10 Atherosclerotic heart disease of native coronary artery without angina pectoris; I10 Essential (primary) hypertension; J44.9 Chronic obstructive pulmonary disease, unspecified; Z87.891 Personal history of nicotine dependence; Z79.01 Long term (current) use of anticoagulants; I35.1 Nonrheumatic aortic (valve) insufficiency

== ENCOUNTER 2017-09-22 13:03 | Outpatient (CLI) | payer MEDICARE ==
[~2017-09-22] VITALS: Ht 193 cm; Wt 93.6 kg
[2017-09-22 13:36] LABS: HEMOGLOBIN 12.7 g/dl (13.5-18.0); MEAN CELL VOLUME 85 fl (80.0-100.0); MEAN CORPUSCULAR HEMOGLOBIN 28 pg (27.0-31.0); MEAN CORPUSCULAR HGB CONC 33 g/dl (33.0-37.0); MEAN PLATELET VOLUME 8.4 fl (7.4-10.4); PLATELET COUNT 270 K/mm3 (130-400); RED BLOOD COUNT 4.58 M/mm3 (4.20-5.60); REDCELL DISTRIBUTION WIDTH-CV 15.7 % (11.5-14.5)
[2017-09-22 13:48] LABS: ALBUMIN 3.6 gm/dL (3.5-5.0); BAND 3 % (0-10); BILIRUBIN,TOTAL 0.2 mg/dL (0.0-1.0); CALCIUM 8.9 mg/dL (8.4-10.2); CREATININE, serum 1.07 mg/dL (0.66-1.25); EOSINOPHIL 3 % (0-4); LYMPHOCYTE 30 % (20.0-51.0); NEUTROPHILS 58 % (42.0-75.2); POTASSIUM 4.6 mmol/L (3.4-5.0); TOTAL PROTEIN 6.7 gm/dL (6.4-8.2)
[2017-09-22 13:49] LABS: PLATELET ESTIMATE NORMAL (NORMAL); POLYCHROMASIA 1+
[2017-09-22 13:57] VITALS: BP 120/82; PULSE 62; TEMP 97.4
[2017-09-22 14:15] VITALS: BP 133/75; PULSE 71
[2017-09-22 14:45] VITALS: BP 113/64; PULSE 70; TEMP 97.6
[2017-09-22 15:19] VITALS: BP 105/63; PULSE 68; TEMP 97.8
== END 2017-09-22 16:49 | disposition home or self-care (01) ==
LOC: EUO 13:03
PROVIDERS: Internal Medicine
DX: D80.1 Nonfamilial hypogammaglobulinemia (principal); Z79.899 Other long term (current) drug therapy
CPT/HCPCS: J1100; J1200; J1459; J1569

== ENCOUNTER 2017-10-20 07:51 | Outpatient (CLI) | payer MEDICARE, MEDICAID ==
[2017-10-20] VITALS (8 sets, daily range): BP systolic 121–133; BP diastolic 73–110; PULSE 60–67; TEMP 96.9–97.8
[~2017-10-20] VITALS: Ht 190.5 cm; Wt 92.0 kg
[~2017-10-20 07:51] MED LIST changes: +ALBUTEROL0.83 MG/ML IH; +ASPIRIN 81M81 MG/TA2 PO; +BENEFIBER PO; +BENTYL 10MG10 MG/CAP PO; +BETAPACE 80MG80 MG PO; +COUMADIN 5MG5 MG/TAB PO; +FLORAJEN BIFIDO1 CAP PO; +MILK OF MA400 MG/52 PO; +MUCINEX1200 MG PO; +PROTONIX20 MG PO; +QUESTRAN4 GM/9 GM PO; +RESTASIS 60VL OP; +SPIRIVA RE2.5 MCG/Ac IH; +VENTOLIN0.09 MG IH; +WELLBUTRIN SR150 M1 PO
[2017-10-20 08:34] LABS: HEMATOCRIT 41.2 % (42.0-52.0); HEMOGLOBIN 13.5 g/dl (13.5-18.0); MEAN CELL VOLUME 86 fl (80.0-100.0); MEAN CORPUSCULAR HEMOGLOBIN 28 pg (27.0-31.0); MEAN CORPUSCULAR HGB CONC 33 g/dl (33.0-37.0); MEAN PLATELET VOLUME 8.9 fl (7.4-10.4); PLATELET COUNT 310 K/mm3 (130-400); REDCELL DISTRIBUTION WIDTH-CV 15.9 % (11.5-14.5)
[2017-10-20 08:39] LABS: ALBUMIN 3.8 gm/dL (3.5-5.0); BILIRUBIN,TOTAL 0.6 mg/dL (0.0-1.0); CALCIUM 9.2 mg/dL (8.4-10.2); CREATININE, serum 0.96 mg/dL (0.66-1.25); POTASSIUM 3.9 mmol/L (3.4-5.0); TOTAL PROTEIN 6.8 gm/dL (6.4-8.2)
[2017-10-20 09:21] LABS: BAND 3 % (0-10); EOSINOPHIL 4 % (0-4); LYMPHOCYTE 39 % (20.0-51.0); NEUTROPHILS 45 % (42.0-75.2); PLATELET ESTIMATE NORMAL (NORMAL)
[2017-10-20] MEDS ORDERED: BETAPACE AF80 MG/TA1 PO (11:27)
== END 2017-10-20 12:04 | disposition home or self-care (01) ==
LOC: EUO 07:51
PROVIDERS: Internal Medicine
DX: D80.1 Nonfamilial hypogammaglobulinemia (principal)
CPT/HCPCS: J1100; J1200; J1459; J1569; J1644

== ENCOUNTER 2017-11-19 11:07 | Outpatient (CLI) | payer MEDICARE, MEDICAID ==
[2017-11-19] VITALS (8 sets, daily range): BP systolic 115–144; BP diastolic 76–87; PULSE 56–70; TEMP 97.8
[~2017-11-19] VITALS: Ht 190.5 cm; Wt 90.7 kg
[~2017-11-19 11:07] MED LIST changes: +BETAPACE AF80 MG/TA1 PO
[2017-11-19 11:52] LABS: HEMATOCRIT 40.9 % (42.0-52.0); HEMOGLOBIN 13.5 g/dl (13.5-18.0); MEAN CELL VOLUME 85 fl (80.0-100.0); MEAN CORPUSCULAR HEMOGLOBIN 28 pg (27.0-31.0); MEAN CORPUSCULAR HGB CONC 33 g/dl (33.0-37.0); MEAN PLATELET VOLUME 8.9 fl (7.4-10.4); PLATELET COUNT 301 K/mm3 (130-400); RED BLOOD COUNT 4.82 M/mm3 (4.20-5.60); REDCELL DISTRIBUTION WIDTH-CV 15.6 % (11.5-14.5)
[2017-11-19 12:02] LABS: ALBUMIN 3.9 gm/dL (3.5-5.0); BILIRUBIN,TOTAL 0.4 mg/dL (0.0-1.0); CALCIUM 9.4 mg/dL (8.4-10.2); CREATININE, serum 1.02 mg/dL (0.66-1.25); POTASSIUM 4.3 mmol/L (3.4-5.0)
[2017-11-19 12:42] LABS: BAND 2 % (0-10); EOSINOPHIL 7 % (0-4); HYPOCHROMIA 1+; LYMPHOCYTE 38 % (20.0-51.0); NEUTROPHILS 51 % (42.0-75.2); PLATELET ESTIMATE NORMAL (NORMAL)
[2017-11-22 08:07] LABS: PATHOLOGY DIFF REVIEW OK
== END 2017-11-19 13:50 | disposition home or self-care (01) ==
LOC: EUO 11:07
PROVIDERS: Internal Medicine
DX: D80.1 Nonfamilial hypogammaglobulinemia (principal)
CPT/HCPCS: J1100; J1200; J1459; J1569; J1644

== ENCOUNTER 2018-02-14 10:49 | Outpatient (CLI) | payer MEDICARE, MEDICAID ==
[~2018-02-14] VITALS: Ht 190.5 cm; Wt 91.3 kg
[2018-02-14] VITALS (9 sets, daily range): BP systolic 101–144; BP diastolic 68–87; PULSE 54–92; TEMP 98
[2018-02-14 11:25] LABS: HEMATOCRIT 40.9 % (42.0-52.0); HEMOGLOBIN 13.2 g/dl (13.5-18.0); MEAN CELL VOLUME 83 fl (80.0-100.0); MEAN CORPUSCULAR HEMOGLOBIN 27 pg (27.0-31.0); MEAN CORPUSCULAR HGB CONC 32 g/dl (33.0-37.0); MEAN PLATELET VOLUME 9.1 fl (7.4-10.4); PLATELET COUNT 278 K/mm3 (130-400); RED BLOOD COUNT 4.95 M/mm3 (4.20-5.60); REDCELL DISTRIBUTION WIDTH-CV 16.8 % (11.5-14.5)
[2018-02-14 11:31] LABS: INR 1.8 (0.8-3.0); PROTHROMBIN TIME 20.8 SECONDS (9.7-12.8)
[2018-02-14 11:40] LABS: ALBUMIN 4.1 gm/dL (3.5-5.0); BILIRUBIN,TOTAL 0.2 mg/dL (0.0-1.0); CALCIUM 9.5 mg/dL (8.4-10.2); CREATININE, serum 1.2 mg/dL (0.66-1.25); POTASSIUM 5.3 mmol/L (3.4-5.0); TOTAL PROTEIN 6.8 gm/dL (6.4-8.2)
[2018-02-14 12:10] LABS: THYROID STIMULATING HORMONE 1.84 uIU/mL (0.465-4.680)
[2018-02-14 12:58] LABS: BAND 3 % (0-10); EOSINOPHIL 3 % (0-4); LYMPHOCYTE 34 % (20.0-51.0); NEUTROPHILS 52 % (42.0-75.2); PLATELET ESTIMATE NORMAL (NORMAL)
== END 2018-02-14 14:00 | disposition home or self-care (01) ==
LOC: EUO 10:49
PROVIDERS: Internal Medicine
DX: D80.1 Nonfamilial hypogammaglobulinemia (principal); I48.0 Paroxysmal atrial fibrillation; Z79.01 Long term (current) use of anticoagulants; Z45.2 Encounter for adjustment and management of vascular access device; Z95.828 Presence of other vascular implants and grafts
CPT/HCPCS: J1100; J1200; J1459; J1569; J1644

== ENCOUNTER 2018-03-16 11:00 | Outpatient (CLI) | payer MEDICARE, MEDICAID ==
[2018-03-16] VITALS (7 sets, daily range): BP systolic 119–130; BP diastolic 68–93; PULSE 54–65; TEMP 97.4–97.9
[~2018-03-16] VITALS: Ht 190.5 cm; Wt 90.2 kg
[2018-03-16 11:53] LABS: HEMATOCRIT 40.6 % (42.0-52.0); HEMOGLOBIN 13.1 g/dl (13.5-18.0); MEAN CELL VOLUME 83 fl (80.0-100.0); MEAN CORPUSCULAR HEMOGLOBIN 27 pg (27.0-31.0); MEAN CORPUSCULAR HGB CONC 32 g/dl (33.0-37.0); MEAN PLATELET VOLUME 9.1 fl (7.4-10.4); PLATELET COUNT 278 K/mm3 (130-400); RED BLOOD COUNT 4.87 M/mm3 (4.20-5.60); REDCELL DISTRIBUTION WIDTH-CV 18.1 % (11.5-14.5)
[2018-03-16 11:59] LABS: BILIRUBIN,TOTAL 0.5 mg/dL (0.0-1.0); CALCIUM 9.1 mg/dL (8.4-10.2); CREATININE, serum 0.99 mg/dL (0.66-1.25); POTASSIUM 4.4 mmol/L (3.4-5.0); TOTAL PROTEIN 6.7 gm/dL (6.4-8.2)
[2018-03-16 12:00] LABS: PROTHROMBIN TIME 22.2 SECONDS (9.7-12.8)
[2018-03-16 13:10] LABS: BAND 1 % (0-10); BASOPHIL 1 % (0-2); EOSINOPHIL 2 % (0-4); LYMPHOCYTE 34 % (20.0-51.0); NEUTROPHILS 55 % (42.0-75.2)
[2018-03-16 13:11] LABS: PLATELET ESTIMATE NORMAL (NORMAL)
== END 2018-03-16 14:02 | disposition home or self-care (01) ==
LOC: EUO 11:00
PROVIDERS: Internal Medicine
DX: D80.1 Nonfamilial hypogammaglobulinemia (principal); I48.0 Paroxysmal atrial fibrillation; Z79.899 Other long term (current) drug therapy; Z79.01 Long term (current) use of anticoagulants
CPT/HCPCS: J1100; J1200; J1569; J1644

== ENCOUNTER 2018-04-20 12:50 | Outpatient (CLI) | payer MEDICARE, MEDICAID ==
[2018-04-20] VITALS (7 sets, daily range): BP systolic 103–136; BP diastolic 61–86; PULSE 62–71; TEMP 97–98.2
[~2018-04-20] VITALS: Ht 190.5 cm; Wt 90.6 kg
[2018-04-20 13:48] LABS: HEMATOCRIT 40.3 % (42.0-52.0); HEMOGLOBIN 12.9 g/dl (13.5-18.0); MEAN CELL VOLUME 84 fl (80.0-100.0); MEAN CORPUSCULAR HEMOGLOBIN 27 pg (27.0-31.0); MEAN CORPUSCULAR HGB CONC 32 g/dl (33.0-37.0); MEAN PLATELET VOLUME 9.2 fl (7.4-10.4); PLATELET COUNT 268 K/mm3 (130-400); RED BLOOD COUNT 4.82 M/mm3 (4.20-5.60); REDCELL DISTRIBUTION WIDTH-CV 17.1 % (11.5-14.5)
[2018-04-20 13:58] LABS: ALBUMIN 3.9 gm/dL (3.5-5.0); BILIRUBIN,TOTAL 0.5 mg/dL (0.0-1.0); CALCIUM 9.2 mg/dL (8.4-10.2); POTASSIUM 4.1 mmol/L (3.4-5.0); TOTAL PROTEIN 6.5 gm/dL (6.4-8.2)
[2018-04-20 14:05] LABS: ANISOCYTOSIS 1+; BAND 1 % (0-10); EOSINOPHIL 10 % (0-4); LYMPHOCYTE 34 % (20.0-51.0); NEUTROPHILS 48 % (42.0-75.2); PLATELET ESTIMATE NORMAL (NORMAL)
[2018-04-20 14:25] LABS: INR 2.7 (0.8-3.0); PROTHROMBIN TIME 30.4 SECONDS (9.7-12.8)
== END 2018-04-20 16:18 | disposition home or self-care (01) ==
LOC: EUO 12:50
PROVIDERS: Family Medicine; Internal Medicine
DX: D80.1 Nonfamilial hypogammaglobulinemia (principal); I48.0 Paroxysmal atrial fibrillation; Z79.01 Long term (current) use of anticoagulants; Z45.2 Encounter for adjustment and management of vascular access device; Z95.828 Presence of other vascular implants and grafts; Z48.00 Encounter for change or removal of nonsurgical wound dressing
CPT/HCPCS: J1100; J1200; J1459; J1569; J1644

== ENCOUNTER 2018-05-17 09:49 | Day surgery (SDC) | payer MEDICARE, MEDICAID ==
[~2018-05-17] VITALS: Ht 190.5 cm; Wt 90.2 kg
[2018-05-17] MEDS ORDERED: ANORO IH (10:21)
[2018-05-17] MEDS ORDERED: BACTRIM DS 8001 TAB PO (10:21)
[2018-05-17] MEDS ORDERED: CUVITRU IV (10:34)
[2018-05-17 10:39] VITALS: BP 111/75; PULSE 61; TEMP 97.6
[2018-05-17 12:35] VITALS: BP 120/85; PULSE 60
[2018-05-17 12:50] VITALS: BP 125/80; PULSE 75
[2018-05-17 13:05] VITALS: BP 116/87; PULSE 74
== END 2018-05-17 13:15 | disposition home or self-care (01) ==
LOC: SDCO 09:49
DX: K57.30 Diverticulosis of large intestine without perforation or abscess without bleeding (principal); K64.8 Other hemorrhoids; K21.9 Gastro-esophageal reflux disease without esophagitis; M19.90 Unspecified osteoarthritis, unspecified site; J44.9 Chronic obstructive pulmonary disease, unspecified; E78.00 Pure hypercholesterolemia, unspecified; I10 Essential (primary) hypertension; K58.9 Irritable bowel syndrome, unspecified; I48.91 Unspecified atrial fibrillation; I25.10 Atherosclerotic heart disease of native coronary artery without angina pectoris; I42.9 Cardiomyopathy, unspecified; Z79.82 Long term (current) use of aspirin; Z79.51 Long term (current) use of inhaled steroids; Z86.010 Personal history of colon polyps
CPT/HCPCS: J2704; J7030

== ENCOUNTER 2018-05-27 11:10 | Outpatient (CLI) | payer MEDICARE, MEDICAID ==
[2018-05-27] VITALS (7 sets, daily range): BP systolic 125–147; BP diastolic 70–99; PULSE 54–67; TEMP 96.8–98.1
[~2018-05-27] VITALS: Ht 190.5 cm; Wt 89.0 kg
[~2018-05-27 11:10] MED LIST changes: +ANORO IH; +CUVITRU IV
[2018-05-27 11:39] LABS: HEMATOCRIT 40.9 % (42.0-52.0); HEMOGLOBIN 13.3 g/dl (13.5-18.0); MEAN CELL VOLUME 83 fl (80.0-100.0); MEAN CORPUSCULAR HEMOGLOBIN 27 pg (27.0-31.0); MEAN CORPUSCULAR HGB CONC 33 g/dl (33.0-37.0); MEAN PLATELET VOLUME 9.3 fl (7.4-10.4); PLATELET COUNT 274 K/mm3 (130-400); RED BLOOD COUNT 4.96 M/mm3 (4.20-5.60); REDCELL DISTRIBUTION WIDTH-CV 16.5 % (11.5-14.5)
[2018-05-27 11:49] LABS: BILIRUBIN,TOTAL 0.1 mg/dL (0.0-1.0); CALCIUM 9.2 mg/dL (8.4-10.2); CREATININE, serum 1.05 mg/dL (0.66-1.25); POTASSIUM 4.6 mmol/L (3.4-5.0); TOTAL PROTEIN 6.6 gm/dL (6.4-8.2)
[2018-05-27 11:59] LABS: INR 2.5 (0.8-3.0); PROTHROMBIN TIME 28.9 SECONDS (9.7-12.8)
[2018-05-27 12:17] LABS: BAND 3 % (0-10); EOSINOPHIL 3 % (0-4); NEUTROPHILS 56 % (42.0-75.2); PLATELET ESTIMATE NORMAL (NORMAL)
[2018-05-27 12:18] LABS: ANISOCYTOSIS 1+; LYMPHOCYTE 32 % (20.0-51.0)
[2018-05-27] MEDS ORDERED: CLARITIN 1010 MG/TAB PO (13:38)
== END 2018-05-27 14:30 | disposition home or self-care (01) ==
LOC: EUO 11:10
PROVIDERS: Internal Medicine
DX: D80.1 Nonfamilial hypogammaglobulinemia (principal); I48.0 Paroxysmal atrial fibrillation; Z79.01 Long term (current) use of anticoagulants; Z45.2 Encounter for adjustment and management of vascular access device; Z95.828 Presence of other vascular implants and grafts
CPT/HCPCS: J1100; J1200; J1459; J1569; J1644

== ENCOUNTER 2018-07-13 11:23 | Outpatient (CLI) | payer MEDICARE, MEDICAID ==
[~2018-07-13] VITALS: Ht 190.5 cm; Wt 87.9 kg
[~2018-07-13 11:23] MED LIST changes: +CLARITIN 1010 MG/TAB PO
[2018-07-13 11:50] VITALS: BP 123/86; PULSE 68; TEMP 98.4
[2018-07-13 11:52] LABS: HEMATOCRIT 43.7 % (42.0-52.0); HEMOGLOBIN 14.3 g/dl (13.5-18.0); MEAN CELL VOLUME 81 fl (80.0-100.0); MEAN CORPUSCULAR HEMOGLOBIN 27 pg (27.0-31.0); MEAN CORPUSCULAR HGB CONC 33 g/dl (33.0-37.0); PLATELET COUNT 296 K/mm3 (130-400); RED BLOOD COUNT 5.38 M/mm3 (4.20-5.60); REDCELL DISTRIBUTION WIDTH-CV 16.8 % (11.5-14.5)
[2018-07-13 12:05] VITALS: BP 101/64; PULSE 76; TEMP 98.4
[2018-07-13 12:06] LABS: ALBUMIN 4.3 gm/dL (3.5-5.0); BILIRUBIN,TOTAL 0.4 mg/dL (0.0-1.0); CALCIUM 9.6 mg/dL (8.4-10.2); CREATININE, serum 1.19 mg/dL (0.66-1.25); TOTAL PROTEIN 7.1 gm/dL (6.4-8.2)
[2018-07-13 12:15] LABS: INR 5.7 (0.8-3.0); PROTHROMBIN TIME 64.7 SECONDS (9.7-12.8)
[2018-07-13 12:20] VITALS: BP 100/64; PULSE 79; TEMP 98.4
[2018-07-13 12:31] LABS: EOSINOPHIL 1 % (0-4); LYMPHOCYTE 23 % (20.0-51.0); METAMYELOCYTE 1 % (0-0); NEUTROPHILS 70 % (42.0-75.2); PLATELET ESTIMATE NORMAL (NORMAL)
[2018-07-13 12:32] LABS: ANISOCYTOSIS 1+
[2018-07-13] MEDS ORDERED: BACTRIM DS 8001 TAB PO (12:49)
[2018-07-13 12:50] VITALS: BP 122/84; PULSE 66; TEMP 98.4
[2018-07-13 13:20] VITALS: BP 116/80; PULSE 84; TEMP 98.4
[2018-07-13 13:51] VITALS: BP 108/76; PULSE 82; TEMP 98.4
== END 2018-07-13 13:52 | disposition home or self-care (01) ==
LOC: EUO 11:23
PROVIDERS: Internal Medicine
DX: D80.1 Nonfamilial hypogammaglobulinemia (principal); I48.0 Paroxysmal atrial fibrillation; Z79.899 Other long term (current) drug therapy
CPT/HCPCS: J1100; J1200; J1569; J1644

== ENCOUNTER 2018-08-22 10:18 | Outpatient (CLI) | payer MEDICARE, MEDICAID ==
[~2018-08-22] VITALS: Ht 190.5 cm; Wt 87.3 kg
[2018-08-22] VITALS (7 sets, daily range): BP systolic 102–117; BP diastolic 66–85; PULSE 56–59; TEMP 97.6
[2018-08-22 10:49] LABS: HEMATOCRIT 40.4 % (42.0-52.0); HEMOGLOBIN 13.2 g/dl (13.5-18.0); MEAN CELL VOLUME 82 fl (80.0-100.0); MEAN CORPUSCULAR HEMOGLOBIN 27 pg (27.0-31.0); MEAN CORPUSCULAR HGB CONC 33 g/dl (33.0-37.0); MEAN PLATELET VOLUME 8.4 fl (7.4-10.4); PLATELET COUNT 387 K/mm3 (130-400); REDCELL DISTRIBUTION WIDTH-CV 17.1 % (11.5-14.5)
[2018-08-22 10:58] LABS: ALBUMIN 3.8 gm/dL (3.5-5.0); BILIRUBIN,TOTAL 0.3 mg/dL (0.0-1.0); CALCIUM 9.5 mg/dL (8.4-10.2); POTASSIUM 4.4 mmol/L (3.4-5.0); TOTAL PROTEIN 6.7 gm/dL (6.4-8.2)
[2018-08-22 11:00] LABS: INR 6.7 (0.8-3.0)
[2018-08-22 11:33] LABS: EOSINOPHIL 6 % (0-4); LYMPHOCYTE 29 % (20.0-51.0); NEUTROPHILS 57 % (42.0-75.2)
[2018-08-22 11:34] LABS: PLATELET ESTIMATE NORMAL (NORMAL)
--- NOTE | 2018-08-22 12:00 | NUR ---
PT NOTIFIED REGARDING DISCUSSION WITH . PT AWARE TO HOLD COUMADIN AND GO TO OFFICE TO HAVE INR RECHECKED ON . OFFICE WILL CALL AFTER RESULTS ARE IN TO GUIDE PT REGARDING HIS DOSAGE. PT VERBALIZED UNDERSTANDING.
[2018-08-22] MEDS ORDERED: COLCRYS0.6 MG PO (13:02)
== END 2018-08-22 13:10 | disposition home or self-care (01) ==
LOC: EUO 10:18
PROVIDERS: Internal Medicine
DX: D80.1 Nonfamilial hypogammaglobulinemia (principal); I48.0 Paroxysmal atrial fibrillation; Z79.01 Long term (current) use of anticoagulants
CPT/HCPCS: J1100; J1200; J1569; J1644

== ENCOUNTER 2018-10-07 13:08 | Outpatient (CLI) | payer MEDICARE, MEDICAID ==
--- NOTE | 2018-10-04 09:43 | NUR ---
Patient has cancelled infusions each month when scheduled.Kia Holt at office notified of cancelations and dates rescheduled.Will continue to attempt to do infusions monthly as ordered with patient's compliance.Patient has agreed to come after multiple attempts of this staff to reschedule.
[2018-10-07] VITALS (8 sets, daily range): BP systolic 121–134; BP diastolic 64–80; PULSE 58–82; TEMP 97.3–97.6
[~2018-10-07] VITALS: Ht 190.5 cm; Wt 85.0 kg
[~2018-10-07 13:08] MED LIST changes: +COLCRYS0.6 MG PO
[2018-10-07 14:00] LABS: HEMATOCRIT 38.7 % (42.0-52.0); HEMOGLOBIN 12.5 g/dl (13.5-18.0); MEAN CELL VOLUME 84 fl (80.0-100.0); MEAN CORPUSCULAR HEMOGLOBIN 27 pg (27.0-31.0); MEAN CORPUSCULAR HGB CONC 32 g/dl (33.0-37.0); MEAN PLATELET VOLUME 8.7 fl (7.4-10.4); PLATELET COUNT 327 K/mm3 (130-400); RED BLOOD COUNT 4.61 M/mm3 (4.20-5.60); REDCELL DISTRIBUTION WIDTH-CV 17.2 % (11.5-14.5)
[2018-10-07 14:02] LABS: INR 3.4 (0.8-3.0); PROTHROMBIN TIME 38.9 SECONDS (9.7-12.8)
[2018-10-07 14:07] LABS: ALBUMIN 3.8 gm/dL (3.5-5.0); BILIRUBIN,TOTAL 0.3 mg/dL (0.0-1.0); CALCIUM 9.2 mg/dL (8.4-10.2); CREATININE, serum 1.02 (0.66-1.25); TOTAL PROTEIN 6.6 gm/dL (6.4-8.2)
[2018-10-07 14:29] LABS: EOSINOPHIL 5 % (0-4); LYMPHOCYTE 39 % (20.0-51.0); METAMYELOCYTE 2 % (0-0); MYELOCYTE 1 % (0-0); NEUTROPHILS 46 % (42.0-75.2); NUCLEATED RED BLOOD CELL 1 (0-6); PLATELET ESTIMATE NORMAL (NORMAL)
== END 2018-10-07 17:17 | disposition home or self-care (01) ==
LOC: EUO 13:08
PROVIDERS: Internal Medicine
DX: Z51.81 Encounter for therapeutic drug level monitoring (principal); I48.0 Paroxysmal atrial fibrillation; Z79.01 Long term (current) use of anticoagulants; D80.1 Nonfamilial hypogammaglobulinemia
CPT/HCPCS: J1100; J1200; J1459; J1569; J1644

== ENCOUNTER 2018-11-18 11:15 | Outpatient (CLI) | payer MEDICARE, MEDICAID ==
[~2018-11-18] VITALS: Ht 190.5 cm; Wt 79.3 kg
[2018-11-18 12:42] LABS: HEMATOCRIT 39.3 % (42.0-52.0); HEMOGLOBIN 12.8 g/dl (13.5-18.0); MEAN CELL VOLUME 83 fl (80.0-100.0); MEAN CORPUSCULAR HEMOGLOBIN 27 pg (27.0-31.0); MEAN CORPUSCULAR HGB CONC 33 g/dl (33.0-37.0); PLATELET COUNT 299 K/mm3 (130-400); RED BLOOD COUNT 4.72 M/mm3 (4.20-5.60); REDCELL DISTRIBUTION WIDTH-CV 17.5 % (11.5-14.5)
[2018-11-18 12:49] LABS: INR 1.8 (0.8-3.0); PROTHROMBIN TIME 20.9 SECONDS (9.7-12.8)
[2018-11-18 12:52] LABS: ALBUMIN 4.3 gm/dL (3.5-5.0); BILIRUBIN,TOTAL 0.5 mg/dL (0.0-1.0); CALCIUM 9.7 mg/dL (8.4-10.2); CREATININE, serum 1.04 (0.66-1.25); POTASSIUM 4.3 mmol/L (3.4-5.0); TOTAL PROTEIN 7.1 gm/dL (6.4-8.2)
[2018-11-18 12:53] VITALS: BP 108/66; PULSE 67; TEMP 98.3
[2018-11-18 13:20] VITALS: BP 105/75; PULSE 66
[2018-11-18 13:50] VITALS: BP 106/51; PULSE 70
[2018-11-18 14:01] LABS: HYPOCHROMIA 1+; LYMPHOCYTE 16 % (20.0-51.0); NEUTROPHILS 81 % (42.0-75.2); PLATELET ESTIMATE NORMAL (NORMAL)
[2018-11-18 14:20] VITALS: BP 101/44; PULSE 71; TEMP 97.6
[2018-11-18 14:50] VITALS: BP 110/68; PULSE 60; TEMP 97.6
--- NOTE | 2018-11-18 15:31 | NUR ---
PORT A CATH ACCESSED BY SELENA GALAN PRIOR TO INUSION.FLUSHES EASILY,NO BLOOD RETURN.PT STATES "IT DOSE THIS ONE IN A WHILE." PT REQUESTS INT TO BE PLACED.PT PORT FLUSHED AND DEACCESSED PER PT REQUEST TO "SEE HOW TI WORKS NEXT TIME."
== END 2018-11-18 15:39 | disposition home or self-care (01) ==
LOC: EUO 11:15
PROVIDERS: Family Medicine; Internal Medicine
DX: I48.0 Paroxysmal atrial fibrillation (principal); D80.1 Nonfamilial hypogammaglobulinemia; Z79.01 Long term (current) use of anticoagulants
CPT/HCPCS: J1100; J1200; J1569; J1644

== ENCOUNTER 2018-12-16 10:50 | Outpatient (CLI) | payer MEDICARE, MEDICAID ==
[~2018-12-16] VITALS: Ht 190.5 cm; Wt 78.7 kg
[2018-12-16 11:20] LABS: HEMATOCRIT 38.8 % (42.0-52.0); HEMOGLOBIN 12.6 g/dl (13.5-18.0); MEAN CELL VOLUME 83 fl (80.0-100.0); MEAN CORPUSCULAR HEMOGLOBIN 27 pg (27.0-31.0); MEAN CORPUSCULAR HGB CONC 33 g/dl (33.0-37.0); MEAN PLATELET VOLUME 8.6 fl (7.4-10.4); PLATELET COUNT 353 K/mm3 (130-400); RED BLOOD COUNT 4.69 M/mm3 (4.20-5.60); REDCELL DISTRIBUTION WIDTH-CV 18.2 % (11.5-14.5)
[2018-12-16 11:26] LABS: INR 3.2 (0.8-3.0); PROTHROMBIN TIME 39.2 SECONDS (9.7-12.8)
[2018-12-16 11:36] LABS: BAND 3 % (0-10); LYMPHOCYTE 16 % (20.0-51.0); NEUTROPHILS 79 % (42.0-75.2); PLATELET ESTIMATE NORMAL (NORMAL)
[2018-12-16 11:37] LABS: ALBUMIN 3.9 gm/dL (3.5-5.0); BILIRUBIN,TOTAL 0.1 mg/dL (0.0-1.0); CALCIUM 9.3 mg/dL (8.4-10.2); CREATININE, serum 1.07 (0.66-1.25); POTASSIUM 4.7 mmol/L (3.4-5.0); TOTAL PROTEIN 6.5 gm/dL (6.4-8.2)
[2018-12-16 11:50] VITALS: BP 97/59; PULSE 79; TEMP 97.8
[2018-12-16 12:03] VITALS: BP 120/70; PULSE 78; TEMP 97.5
[2018-12-16 12:05] VITALS: BP 94/57; PULSE 77; TEMP 97.8
[2018-12-16 12:34] VITALS: BP 90/53; PULSE 77; TEMP 97.8
[2018-12-16 13:03] VITALS: BP 98/58; PULSE 74; TEMP 97.8
[2018-12-16 13:40] VITALS: BP 98/57; PULSE 73; TEMP 97.6
== END 2018-12-16 13:50 | disposition home or self-care (01) ==
LOC: EUO 10:50
PROVIDERS: Family Medicine; Internal Medicine
DX: I48.0 Paroxysmal atrial fibrillation (principal); Z79.01 Long term (current) use of anticoagulants
CPT/HCPCS: J1100; J1200; J1459; J1569; J1644

== ENCOUNTER 2019-02-08 10:55 | Outpatient (CLI) | payer MEDICARE, MEDICAID ==
[2019-02-08] VITALS (7 sets, daily range): BP systolic 102–118; BP diastolic 56–80; PULSE 49–64; TEMP 96.7–98
[~2019-02-08] VITALS: Ht 190.5 cm; Wt 79.4 kg
[2019-02-08 11:36] LABS: HEMATOCRIT 37.6 % (42.0-52.0); HEMOGLOBIN 12.4 g/dl (13.5-18.0); MEAN CELL VOLUME 84 fl (80.0-100.0); MEAN CORPUSCULAR HEMOGLOBIN 28 pg (27.0-31.0); MEAN CORPUSCULAR HGB CONC 33 g/dl (33.0-37.0); MEAN PLATELET VOLUME 8.6 fl (7.4-10.4); PLATELET COUNT 273 K/mm3 (130-400); RED BLOOD COUNT 4.48 M/mm3 (4.20-5.60); REDCELL DISTRIBUTION WIDTH-CV 16.8 % (11.5-14.5)
[2019-02-08 11:41] LABS: INR 1.1 (0.8-3.0); PROTHROMBIN TIME 12.3 SECONDS (9.7-12.8)
[2019-02-08] MEDS ORDERED: ELIQUIS 5MG PO (11:44)
[2019-02-08 11:45] LABS: BILIRUBIN,TOTAL 0.4 mg/dL (0.0-1.0); CALCIUM 9.2 mg/dL (8.4-10.2); CREATININE, serum 0.91 (0.66-1.25); POTASSIUM 4.8 mmol/L (3.4-5.0); TOTAL PROTEIN 6.5 gm/dL (6.4-8.2)
[2019-02-08 11:53] LABS: ANISOCYTOSIS 1+; BASOPHIL 1 % (0-2); EOSINOPHIL 4 % (0-4); LYMPHOCYTE 42 % (20.0-51.0); NEUTROPHILS 41 % (42.0-75.2); PLATELET ESTIMATE NORMAL (NORMAL)
== END 2019-02-08 15:00 | disposition home or self-care (01) ==
LOC: EUO 10:55
PROVIDERS: Family Medicine; Internal Medicine
DX: I48.0 Paroxysmal atrial fibrillation (principal); D80.1 Nonfamilial hypogammaglobulinemia; Z79.01 Long term (current) use of anticoagulants
CPT/HCPCS: J1100; J1200; J1569; J1644

== ENCOUNTER 2019-03-08 13:33 | Outpatient (CLI) | payer MEDICARE, MEDICAID ==
[~2019-03-08] VITALS: Ht 190.5 cm; Wt 79.3 kg
[~2019-03-08 13:33] MED LIST changes: +ELIQUIS 5MG PO
[2019-03-08 13:50] VITALS: BP 121/62; PULSE 62; TEMP 97.2
[2019-03-08 14:20] LABS: HEMATOCRIT 39.4 % (42.0-52.0); MEAN CELL VOLUME 85 fl (80.0-100.0); MEAN CORPUSCULAR HEMOGLOBIN 28 pg (27.0-31.0); MEAN CORPUSCULAR HGB CONC 33 g/dl (33.0-37.0); MEAN PLATELET VOLUME 8.4 fl (7.4-10.4); PLATELET COUNT 281 K/mm3 (130-400); RED BLOOD COUNT 4.63 M/mm3 (4.20-5.60); REDCELL DISTRIBUTION WIDTH-CV 16.6 % (11.5-14.5)
[2019-03-08 14:25] VITALS: BP 112/68; PULSE 62; TEMP 97.6
[2019-03-08 14:25] LABS: INR 1.1 (0.8-3.0); PROTHROMBIN TIME 12.9 SECONDS (9.7-12.8)
[2019-03-08 14:35] LABS: BILIRUBIN,TOTAL 0.4 mg/dL (0.0-1.0); CALCIUM 9.2 mg/dL (8.4-10.2); CREATININE, serum 1.01 (0.66-1.25); POTASSIUM 4.2 mmol/L (3.4-5.0); TOTAL PROTEIN 6.5 gm/dL (6.4-8.2)
[2019-03-08 14:40] VITALS: BP 106/65; PULSE 60; TEMP 97.8
[2019-03-08 14:52] LABS: BAND 2 % (0-10); EOSINOPHIL 4 % (0-4); LYMPHOCYTE 41 % (20.0-51.0); NEUTROPHILS 48 % (42.0-75.2)
[2019-03-08 14:53] LABS: PLATELET ESTIMATE NORMAL (NORMAL)
[2019-03-08 15:10] VITALS: BP 97/55; PULSE 73; TEMP 97.8
[2019-03-08 15:40] VITALS: BP 104/60; PULSE 63; TEMP 97.8
[2019-03-08 16:23] VITALS: BP 125/64; PULSE 65; TEMP 97.9
== END 2019-03-08 16:27 | disposition home or self-care (01) ==
LOC: EUO 13:33
PROVIDERS: Internal Medicine
DX: D80.1 Nonfamilial hypogammaglobulinemia (principal); I48.0 Paroxysmal atrial fibrillation; Z79.01 Long term (current) use of anticoagulants
CPT/HCPCS: J1100; J1200; J1569; J1644

== ENCOUNTER 2019-04-05 13:26 | Outpatient (CLI) | payer MEDICARE, MEDICAID ==
[2019-04-05] VITALS (7 sets, daily range): BP systolic 111–124; BP diastolic 60–76; PULSE 72–82; TEMP 97.3
[~2019-04-05] VITALS: Ht 190.5 cm; Wt 79.2 kg
[2019-04-05 14:00] LABS: HEMATOCRIT 41.7 % (42.0-52.0); MEAN CELL VOLUME 85 fl (80.0-100.0); MEAN CORPUSCULAR HEMOGLOBIN 29 pg (27.0-31.0); MEAN CORPUSCULAR HGB CONC 34 g/dl (33.0-37.0); MEAN PLATELET VOLUME 8.4 fl (7.4-10.4); PLATELET COUNT 327 K/mm3 (130-400); RED BLOOD COUNT 4.89 M/mm3 (4.20-5.60)
[2019-04-05 14:11] LABS: ALBUMIN 4.4 gm/dL (3.5-5.0); BILIRUBIN,TOTAL 0.3 mg/dL (0.0-1.0); CALCIUM 9.6 mg/dL (8.4-10.2); CREATININE, serum 0.88 (0.66-1.25); POTASSIUM 4.5 mmol/L (3.4-5.0)
[2019-04-05 14:50] LABS: ANISOCYTOSIS 1+; BAND 1 % (0-10); LYMPHOCYTE 14 % (20.0-51.0); NEUTROPHILS 82 % (42.0-75.2); PLATELET ESTIMATE NORMAL (NORMAL)
== END 2019-04-05 16:15 | disposition home or self-care (01) ==
LOC: EUO 13:26
PROVIDERS: Internal Medicine
DX: D80.1 Nonfamilial hypogammaglobulinemia (principal); Z95.9 Presence of cardiac and vascular implant and graft, unspecified; Z79.899 Other long term (current) drug therapy
CPT/HCPCS: J1100; J1200; J1569; J1644; Q9967